=== PATIENT | male | born 1990 | race African-American/Black ===

== ENCOUNTER 2018-10-14 03:01 | Emergency (ER) | payer SELFPAY ==
[~2018-10-14] VITALS: Ht 172.7 cm; Wt 68.2 kg
[2018-10-14 03:53] VITALS: Ht 172.7 cm; Wt 68.2 kg
[2018-10-14] MEDS ORDERED: HYDROCODON-ACE1 EAC7 PO (04:33)
[2018-10-14 04:50] VITALS: BP 130/69
== END 2018-10-14 04:56 | disposition home or self-care (01) ==
LOC: D.ER 03:01
DX: I80.8 Phlebitis and thrombophlebitis of other sites (principal)